=== PATIENT | male | born 1950 | race Hispanic/Latino ===

== ENCOUNTER 2017-08-21 04:18 | Inpatient (IN) | payer MEDICAID, MEDICARE ==
[2017-08-21 04:33] VITALS: BMI 25.1
[2017-08-21] MEDS ORDERED: Albuterol 0.083% Inhal Sol (2.5 mg/3 mL) UD INH STA (05:05)
--- NOTE | 2017-08-21 05:32 | C.PDOC ---
History Of Present Illness 67 year old male presents to the ED c/o productive cough with white phlegm, chest congestion, SOB, chills and itchy throat for the past 1 day. Patient reports had the flu shot this year. Patient denies fever, SOB, CP, recent travel , sick contacts. Time Seen by Provider: 08/21/17 04:48 Chief Complaint (Nursing): Cough, Cold, Congestion History Per: Patient History/Exam Limitations: no limitations Onset/Duration Of Symptoms: Days Current Symptoms Are (Timing): Still Present Location Of Pain: Throat Sick Contacts (Context): None Associated Symptoms: Chills, Cough, Sputum, Nasal Congestion. denies: Fever Ear Symptoms: Bilateral: None Recent travel outside of the [place]: No Additional History Per: Patient Past Medical History Reviewed: Historical Data, Nursing Documentation, Vital Signs Vital Signs: Last Vital Signs Temp 98.8 F 08/21/17 05:53 Pulse 101 H 08/21/17 05:53 Resp 20 08/21/17 05:53 BP 164/93 H 08/21/17 05:53 Pulse Ox 97 08/21/17 05:53 - Medical History PMH: No Chronic Diseases Surgical History: Appendectomy Family History: States: Unknown Family Hx - Social History Hx Alcohol Use: No (pt denies) Hx Substance Use: No (pt denies) - Immunization History Hx Tetanus Toxoid Vaccination: No Hx Influenza Vaccination: Yes Hx Pneumococcal Vaccination: No Review Of Systems Constitutional: Positive for: Chills. Negative for: Fever ENT: Positive for: Nose Congestion. Negative for: Nose Discharge, Throat Pain Cardiovascular: Negative for: Chest Pain Respiratory: Positive for: Cough, Sputum. Negative for: Shortness of Breath Gastrointestinal: Negative for: Nausea, Vomiting Skin: Negative for: Rash Neurological: Negative for: Headache, Dizziness Physical Exam - Physical Exam Appears: Non-toxic, No Acute Distress Skin: Normal Color, Warm, Dry Head: Atraumatic, Normacephalic Eye(s): bilateral: Normal Inspection Ear(s): Bilateral: Normal Nose: No Discharge Oral Mucosa: Moist Throat: Normal, No Erythema, No Exudate Neck: Normal ROM, Supple Chest: Symmetrical Cardiovascular: Rhythm Regular, No Murmur Respiratory: No Rales, Rhonchi (left lower base), No Wheezing Gastrointestinal/Abdominal: Soft, No Tenderness, No Guarding, No Rebound Extremity: Normal ROM, No Tenderness, No Swelling Neurological/Psych: Oriented x3, Normal Speech, Normal Motor, Normal Sensation Gait: Steady ED Course And Treatment O2 Sat by Pulse Oximetry: 93 Pulse Ox Interpretation: Abnormal (low) - Radiology CXR: Interpreted by Me, Viewed By Me (and dr noguera) CXR Interpretation: Yes: Mediastinum (wide), Other (uncoiled aorta) Progress Note: Plan: - Albuterol 2.5 mg INH. - Benadryl 25 mg PO. - Prednisone 40 mg PO. While in the ED patient was foudn to have elevated blood pressure. Patient with wide mediastinum, uncoiled aorta with cough and SOB. no infiltrate. Pt is pending CTA chest to r/o aortic aneurysm / PE. 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 - Scribe Statement The provider has reviewed the documentation as recorded by the Scribe William Muñoz All medical record entries made by the Scribe were at my direction and personally dictated by me. I have reviewed the chart and agree that the record accurately reflects my personal performance of the history, physical exam, medical decision making, and the department course for this patient. I have also personally directed, reviewed, and agree with the discharge instructions and disposition. Physician Patient Turnover Patient Signed Over To: Carina Rai Handoff Comments: Pending CTA chest and disposition
[2017-08-21] MEDS ORDERED: Albuterol 0.083% Inhal Sol (2.5 mg/3 mL) UD ONE (05:34)
[2017-08-21 07:38] LABS: BASO # 0.1 K/uL (0.0-0.2); BASO % 0.7 % (0.0-2.0); HEMOGLOBIN 15.8 g/dL (12.0-18.0); LYMPH # 0.6 K/uL (1.0-4.3); LYMPH % 4.4 % (20.0-40.0); MEAN CELL VOLUME 81.3 fL (80.0-94.0); MEAN CORPUSCULAR HEMOGLOBIN 27.5 pg (27.0-31.0); MEAN CORPUSCULAR HGB CONC 33.9 g/dL (33.0-37.0); MEAN PLATELET VOLUME 8.3 fL (7.2-11.7); MONO # 0.6 K/uL (0.0-0.8); MONO % 3.8 % (0.0-10.0); NEUT # 13.2 K/uL (1.8-7.0); NEUT % 91.1 % (50.0-75.0); NRBC % 0.1 % (0.0-2.0); PLATELET COUNT 313 K/uL (130-400); RBC 5.73 Mil/uL (4.40-5.90); WHITE BLOOD COUNT 14.4 K/uL (4.8-10.8)
[2017-08-21 07:53] LABS: ALB/GLOB RATIO 0.9 (1.0-2.1); ALBUMIN 4.2 g/dL (3.5-5.0); CALCIUM 8.9 mg/dl (8.6-10.4); GFR AFRICAN-AMERICAN > 60; GFR NON-AFRICAN AMERICAN > 60
[2017-08-21 07:54] LABS: ALT/SGPT 22 U/L (21-72); AST/SGOT 29 U/L (17-59); BLOOD UREA NITROGEN 14 mg/dL (9-20)
[2017-08-21 07:59] LABS: BANDS 7 % (0-2); LYMPHOCYTE 5 % (20-40); MONOCYTE 5 % (0-10); NEUTROPHIL 83 % (50-75); PLATELET ESTIMATE NORMAL (NORMAL); TOTAL CELLS COUNTED 100
[2017-08-21 08:00] LABS: ANISOCYTOSIS SLIGHT; OVALOCYTES SLIGHT
[2017-08-21 08:07] LABS: INR 1.1; PROTHROMBIN TIME 13.1 SECONDS (9.7-12.2)
--- NOTE | 2017-08-21 08:36 | RAD ---
HISTORY: cough, congestion COMPARISON: No prior. TECHNIQUE: Chest PA and lateral FINDINGS: LUNGS: No active pulmonary disease. PLEURA: No significant pleural effusion identified. No pneumothorax apparent. CARDIOVASCULAR: Normal. OSSEOUS STRUCTURES: No significant abnormalities. VISUALIZED UPPER ABDOMEN: Normal. OTHER FINDINGS: None. IMPRESSION: No active disease.
[2017-08-21] MEDS ORDERED: Iodixanol 320 MG/ML 100 ML BOTTLE IV ONE ×2 (08:39→09:13)
--- NOTE | 2017-08-21 10:16 | CT ---
PROCEDURE: CT Chest with contrast (Pulmonary Angiogram) HISTORY: SOB, cough, widened mediastinum COMPARISON: None available. TECHNIQUE: Axial computed tomography images were obtained of the chest in the pulmonary arterial phase of enhancement. Coronal and sagittal reformatted images were created and reviewed. Intravenous contrast dose: 100 mL Visipaque 320 Radiation dose: Total exam DLP = 556.46 mGy-cm. This CT exam was performed using one or more of the following dose reduction techniques: Automated exposure control, adjustment of the mA and/or kV according to patient size, and/or use of iterative reconstruction technique. FINDINGS: PULMONARY ARTERIES: Technically limited examination. Low-level confidence for subsegmental pulmonary artery evaluation. No large central pulmonary embolism involving the main, lobar or segmental pulmonary arteries. AORTA: No acute findings. No thoracic aortic aneurysm. LUNGS: Mild multifocal patchy opacity in the left upper lobe, possibly representing early pneumonia. No other abnormal opacity elsewhere. No pulmonary mass. PLEURAL SPACES: Unremarkable. No effusion or pneuomothorax. HEART: Unremarkable. No cardiomegaly. No significant pericardial effusion. LYMPH NODES: No lymphadenopathy. BONES, CHEST WALL: Unremarkable. No fracture or destructive lesion OTHER FINDINGS: Unremarkable. IMPRESSION: No evidence pulmonary embolism. Limited examination. Low level of confidence for subsegmental pulmonary arterial branch evaluation. Patchy opacities in left upper lobe which may represent early pneumonia. Follow-up advised.
[2017-08-21] MEDS ORDERED: cefTRIAXone IV 1 gm in Dextros 50 ML IV ONE (10:17)
[2017-08-21] MEDS ORDERED: Azithromycin 500mg/250ML NS 500 MG/250 ML BAG IV ONE (10:30)
[2017-08-21] MEDS ORDERED: cefTRIAXone IV 1 gm in Dextros 50 ML IVPB ONE (11:08)
[2017-08-21] MEDS ORDERED: Azithromycin 500mg/250ML NS 500 MG/250 ML BAG IVPB ONE (11:09)
[2017-08-21] MEDS ORDERED: Metoprolol 1 mg/ml Inj IVP STA (11:14)
[2017-08-21] MEDS: Saccharomyces Boulardi 250 mg Cap PO SCH ×2 (12:00→17:52)
[2017-08-21] MEDS ORDERED: Metoprolol 1 mg/ml Inj IVP ONE (12:14)
--- NOTE | 2017-08-21 13:30 | CP.PCM.HP ---
<Jl Collado - Last Filed: 08/21/17 13:52> History of Present Illness - History of Present Illness History of Present Illness: HPI: Patient is a 67M with no PMH who comes to the ED with a chief complaint of SOB and productive cough for 3 days. Nothing makes the cough, SOB better or worse. Describes the cough as productive of thick, yellow sputum. Denies any radiation. Cough and SOB has been constant since its onset. Patient denies any chest pain, fevers, but has been complaining of chills. Denies Nausea, vomiting , diarrhea, constipation. Denies any swelling of the lower extremities, orthopnea. Complaining of R. submandibular mass he has noticed to be growing in size. Denies any pain around the mass. Also complaining of nocturia causing him to get up many times during the night to urinate. PMH: None PSH: remote history of appy FH: Brother had KS in his 40s, father of melanoma, mother had a CVA at 76 and later of a colon mass. SH: lives at halfway, recently incarcerated for arson. Has already contacted senior administrative services officer Meds: none All: KNA Present on Admission - Present on Admission Any Indicators Present on Admission: No Review of Systems - Review of Systems Review of Systems: per HPI Past Patient History - Tetanus Immunizations Tetanus Immunization: Unknown - Past Social History Smoking Status: Unknown If Ever Smoked - INTEGUMENTARY Other/Comment: unkempt, dirty thick toenails, redness to right knee and multiple areas of abd - MUSCULOSKELETAL/RHEUMATOLOGICAL Hx Falls: No - PSYCHIATRIC Hx Substance Use: No (pt denies) - SURGICAL HISTORY Hx Appendectomy: Yes - ANESTHESIA Hx Anesthesia: No Meds Allergies/Adverse Reactions: Allergies Allergy/AdvReac Type Severity Reaction Status Date / Time No Known Allergies Allergy Verified 08/21/17 04:29 Physical Exam - Constitutional Appears: Non-toxic, No Acute Distress, Unkempt - Head Exam Head Exam: ATRAUMATIC, NORMAL INSPECTION, NORMOCEPHALIC - Eye Exam Eye Exam: EOMI, PERRL Pupil Exam: PERRL - ENT Exam ENT Exam: Mucous Membranes Moist - Neck Exam Neck exam: Positive for: Lymphadenopathy (R. Submandiublar mass, Nontender, mobile) - Respiratory Exam Additional comments: rales in bilateral lower lobes - Cardiovascular Exam Cardiovascular Exam: Tachycardia, REGULAR RHYTHM - GI/Abdominal Exam GI & Abdominal Exam: Normal Bowel Sounds, Soft. absent: Distended, Tenderness - Extremities Exam Extremities exam: Positive for: normal inspection. Negative for: joint swelling - Back Exam Back exam: NORMAL INSPECTION - Neurological Exam Neurological exam: Alert, Oriented x3 - Psychiatric Exam Psychiatric exam: Normal Affect, Normal Mood - Skin Skin Exam: Dry, Intact, Normal Color, Warm Results - Vital Signs Recent Vital Signs: Last Vital Signs Temp 98.8 F 08/21/17 05:53 Pulse 94 H 08/21/17 11:32 Resp 18 08/21/17 09:48 BP 166/114 H 08/21/17 13:09 Pulse Ox 97 08/21/17 09:48 - Labs Result Diagrams: 08/21/17 07:34 08/21/17 07:34 Labs: Laboratory Results - last 24 hr 08/21/17 08/21/17 08/21/17 07:34 07:34 07:34 WBC 14.4 H RBC 5.73 Hgb 15.8 Hct 46.5 MCV 81.3 MCH 27.5 MCHC 33.9 RDW 16.0 H Plt Count 313 MPV 8.3 Neut % (Auto) 91.1 H Lymph % (Auto) 4.4 L [place] % (Auto) 3.8 Eos % (Auto) 0.0 Baso % (Auto) 0.7 Neut # (Auto) 13.2 H Lymph # (Auto) 0.6 L [place] # (Auto) 0.6 Eos # (Auto) 0.0 Baso # (Auto) 0.1 Neutrophils % (Manual) 83 H Band Neutrophils % 7 H Lymphocytes % (Manual) 5 L Monocytes % (Manual) 5 Platelet Estimate Normal Anisocytosis (manual) Slight Ovalocytes Slight PT 13.1 H INR 1.1 APTT 30 D-Dimer, Quantitative Cancelled Sodium 143 Potassium 4.4 Chloride 104 Carbon Dioxide 25 Anion Gap 19 BUN 14 Creatinine 0.8 Est GFR ( Amer) > 60 Est GFR (Non-Af Amer) > 60 Random Glucose 153 H Calcium 8.9 Total Bilirubin 1.8 H AST 29 ALT 22 Alkaline Phosphatase 75 Total Protein 8.7 H Albumin 4.2 Globulin 4.5 H Albumin/Globulin Ratio 0.9 L Influenza Typ A,B (EIA) Grp A Beta Strep Ag 08/21/17 08/21/17 08/21/17 09:41 11:13 11:20 WBC RBC Hgb Hct MCV MCH MCHC RDW Plt Count MPV Neut % (Auto) Lymph % (Auto) [place] % (Auto) Eos % (Auto) Baso % (Auto) Neut # (Auto) Lymph # (Auto) [place] # (Auto) Eos # (Auto) Baso # (Auto) Neutrophils % (Manual) Band Neutrophils % Lymphocytes % (Manual) Monocytes % (Manual) Platelet Estimate Anisocytosis (manual) Ovalocytes PT INR APTT D-Dimer, Quantitative 449 H Sodium Potassium Chloride Carbon Dioxide Anion Gap BUN Creatinine Est GFR ( Amer) Est GFR (Non-Af Amer) Random Glucose Calcium Total Bilirubin AST ALT Alkaline Phosphatase Total Protein Albumin Globulin Albumin/Globulin Ratio Influenza Typ A,B (EIA) Negative for flu a/b Grp A Beta Strep Ag Negative Assessment & Plan (1) Left upper lobe pneumonia Assessment and Plan: CT chest: patchy opacity of JP, may represent early PNA CXR: No active disease Flu negative F/U strep, mycoplasma, legionella F/U blood culture Rocephin 1g IV QD Zithromax 500mg IV QD Status: Acute Priority: High (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 Priority: High (3) Incomplete RBBB Assessment and Plan: Cardio (Dungo) - F/U reccs echo - F/U tele Status: Chronic Priority: High (4) Prophylactic measure Status: Chronic Priority: Low <Bnuny Odonnell - Last Filed: 08/21/17 18:40> Results - Vital Signs Recent Vital Signs: Last Vital Signs Temp 97.5 F L 08/21/17 16:27 Pulse 77 08/21/17 18:00 Resp 20 08/21/17 18:00 BP 113/85 08/21/17 16:27 Pulse Ox 97 08/21/17 16:27 - Labs Result Diagrams: 08/21/17 07:34 08/21/17 07:34 Labs: Laboratory Results - last 24 hr 08/21/17 08/21/17 08/21/17 07:34 07:34 07:34 WBC 14.4 H RBC 5.73 Hgb 15.8 Hct 46.5 MCV 81.3 MCH 27.5 MCHC 33.9 RDW 16.0 H Plt Count 313 MPV 8.3 Neut % (Auto) 91.1 H Lymph % (Auto) 4.4 L [place] % (Auto) 3.8 Eos % (Auto) 0.0 Baso % (Auto) 0.7 Neut # (Auto) 13.2 H Lymph # (Auto) 0.6 L [place] # (Auto) 0.6 Eos # (Auto) 0.0 Baso # (Auto) 0.1 Neutrophils % (Manual) 83 H Band Neutrophils % 7 H Lymphocytes % (Manual) 5 L Monocytes % (Manual) 5 Platelet Estimate Normal Anisocytosis (manual) Slight Ovalocytes Slight PT 13.1 H INR 1.1 APTT 30 D-Dimer, Quantitative Cancelled Sodium 143 Potassium 4.4 Chloride 104 Carbon Dioxide 25 Anion Gap 19 BUN 14 Creatinine 0.8 Est GFR ( Amer) > 60 Est GFR (Non-Af Amer) > 60 Random Glucose 153 H Calcium 8.9 Total Bilirubin 1.8 H AST 29 ALT 22 Alkaline Phosphatase 75 Total Protein 8.7 H Albumin 4.2 Globulin 4.5 H Albumin/Globulin Ratio 0.9 L Influenza Typ A,B (EIA) Ur L.pneumophila Ag Grp A Beta Strep Ag 08/21/17 08/21/17 08/21/17 09:41 11:13 11:20 WBC RBC Hgb Hct MCV MCH MCHC RDW Plt Count MPV Neut % (Auto) Lymph % (Auto) [place] % (Auto) Eos % (Auto) Baso % (Auto) Neut # (Auto) Lymph # (Auto) [place] # (Auto) Eos # (Auto) Baso # (Auto) Neutrophils % (Manual) Band Neutrophils % Lymphocytes % (Manual) Monocytes % (Manual) Platelet Estimate Anisocytosis (manual) Ovalocytes PT INR APTT D-Dimer, Quantitative 449 H Sodium Potassium Chloride Carbon Dioxide Anion Gap BUN Creatinine Est GFR ( Amer) Est GFR (Non-Af Amer) Random Glucose Calcium Total Bilirubin AST ALT Alkaline Phosphatase Total Protein Albumin Globulin Albumin/Globulin Ratio Influenza Typ A,B (EIA) Negative for flu a/b Ur L.pneumophila Ag Grp A Beta Strep Ag Negative 08/21/17 Unknown WBC RBC Hgb Hct MCV MCH MCHC RDW Plt Count MPV Neut % (Auto) Lymph % (Auto) [place] % (Auto) Eos % (Auto) Baso % (Auto) Neut # (Auto) Lymph # (Auto) [place] # (Auto) Eos # (Auto) Baso # (Auto) Neutrophils % (Manual) Band Neutrophils % Lymphocytes % (Manual) Monocytes % (Manual) Platelet Estimate Anisocytosis (manual) Ovalocytes PT INR APTT D-Dimer, Quantitative Sodium Potassium Chloride Carbon Dioxide Anion Gap BUN Creatinine Est GFR ( Amer) Est GFR (Non-Af Amer) Random Glucose Calcium Total Bilirubin AST ALT Alkaline Phosphatase Total Protein Albumin Globulin Albumin/Globulin Ratio Influenza Typ A,B (EIA) Ur L.pneumophila Ag Negative Grp A Beta Strep Ag Attending/Attestation - Attestation I have personally seen and examined this patient.: Yes I have fully participated in the care of the patient.: Yes I have reviewed all pertinent clinical information: Yes Notes (Text): 08/21/17 18:39 Patient was seen and examined in the Emergency Room shortly after resident. History, Exam, assessment and plan were gone over with the resident. We will get the CT Soft Tissue Neck with and without contrast 08/22/17 as it could not be done today secondary to contrast being given for the CT Chest PE protocol. Bunny Odonnell D.O.
[2017-08-22] MEDS ORDERED: guaiFENesin 200 mg/10 ml Syrup UD PO ONE (02:50)
[2017-08-22] MEDS: Azithromycin 500 MG in Sodium Chloride 0.9% 250 ML IVPB SCH (06:00)
[2017-08-22 08:02] LABS: BASO % 0.3 % (0.0-2.0); EOS # 0.1 K/uL (0.0-0.7); EOS % 1.4 % (0.0-4.0); HEMOGLOBIN 14.2 g/dL (12.0-18.0); MEAN CELL VOLUME 81.7 fL (80.0-94.0); MEAN CORPUSCULAR HGB CONC 33.1 g/dL (33.0-37.0); MEAN PLATELET VOLUME 8.4 fL (7.2-11.7); MONO # 0.9 K/uL (0.0-0.8); NEUT # 8.1 K/uL (1.8-7.0); NEUT % 79.3 % (50.0-75.0); RBC 5.25 Mil/uL (4.40-5.90); RED CELL DISTRIBUTION WIDTH 16.1 % (11.5-14.5); WHITE BLOOD COUNT 10.2 K/uL (4.8-10.8)
[2017-08-22 08:47] LABS: BLOOD UREA NITROGEN 19 mg/dL (9-20); CALCIUM 8.3 mg/dl (8.6-10.4); GFR AFRICAN-AMERICAN > 60; GFR NON-AFRICAN AMERICAN > 60
[2017-08-22] MEDS: Saccharomyces Boulardi 250 mg Cap PO SCH ×2 (09:45→17:21)
[2017-08-22] MEDS: guaiFENesin 600 mg ER Tab PO PRN (09:46)
[2017-08-22] MEDS ORDERED: Iodixanol 320 MG/ML 100 ML BOTTLE IV ONE ×2 (10:50→16:21)
--- NOTE | 2017-08-22 12:25 | CARD ---
APPROVED REPORT EKG Measurement Heart [id number] <Conclusion> Normal sinus rhythm Possible Left atrial enlargement Left axis deviation Incomplete right bundle branch block Inferior infarct, age undetermined Abnormal ECG
--- NOTE | 2017-08-22 13:33 | CARD ---
APPROVED REPORT EXAM: Two-dimensional and M-mode echocardiogram with Doppler and color Doppler. Other Information Quality : GoodRhythm : INDICATION Abnormal EKG/Arrhythmia Dyspnea RISK FACTORS Hypertension 2D DIMENSIONS IVSd1.1 (0.7-1.1cm)LVDd4.9 (3.9-5.9cm) PWd1.3 (0.7-1.1cm)LVDs2.7 (2.5-4.0cm) FS (%) 45.5 %LVEF (%)76.7 (>50%) M-Mode DIMENSIONS Left Atrium (MM)3.71 (2.5-4.0cm)Aortic Root3.98 (2.2-3.7cm) Aortic Cusp Exc.2.15 (1.5-2.0cm) Mitral Valve MV E Wvxxthmm14.8cm/sMV A Crcdsoyz61.0cm/sE/A ratio0.9 TDI E/Lateral E'0.0E/Medial E'0.0 Tricuspid Valve TR Peak Omcgsftx712es/sTR Peak Gr.36mmHg LEFT VENTRICLE The left ventricle is normal size. There is normal left ventricular wall thickness. The left ventricular function is normal. The left ventricular ejection fraction is within the normal range. No regional wall motion abnormalities noted. The left ventricular diastolic function is normal. No left ventricle thrombus noted on this study. There is no ventricular septal defect visualized. There is no left ventricular aneurysm. There is no mass noted in the left ventricle. RIGHT VENTRICLE The right ventricle is normal size. There is normal right ventricular wall thickness. The right ventricular systolic function is normal. ATRIA The left atrium size is normal. The right atrium size is normal. The interatrial septum is intact with no evidence for an atrial septal defect. AORTIC VALVE The aortic valve is normal in structure and function. No aortic regurgitation is present. There is no aortic valvular stenosis. There is no aortic valvular vegetation. MITRAL VALVE The mitral valve is normal in structure and function. There is no evidence of mitral valve prolapse. There is no mitral valve stenosis. There is no mitral valve regurgitation noted. TRICUSPID VALVE The tricuspid valve is normal in structure and function. There is mild tricuspid regurgitation. Right ventricular systolic pressure is estimated at 30-40 mmHg. There is no tricuspid valve prolapse or vegetation. There is no tricuspid valve stenosis. PULMONIC VALVE The pulmonary valve is normal in structure and function. There is no pulmonic valvular regurgitation. There is no pulmonic valvular stenosis. GREAT VESSELS The aortic root is normal in size. The ascending aorta is normal in size. The pulmonary artery is normal. The IVC is normal in size and collapses >50% with inspiration. PERICARDIAL EFFUSION The pericardium appears normal. There is no pleural effusion. <Conclusion> The left ventricular function is normal. The left ventricular ejection fraction is within the normal range. No regional wall motion abnormalities noted. There is mild tricuspid regurgitation. Right ventricular systolic pressure is estimated at 30-40 mmHg.
--- NOTE | 2017-08-22 15:43 | CP.PCM.PN ---
Subjective - Date & Time of Evaluation Date of Evaluation: 08/22/17 Time of Evaluation: 15:41 - Subjective Subjective: Patient seen and examined at bedside. No cough, No SOB tolerating diet no fever or chills no nausea or vomiting. No other complaints at this time Objective - Vital Signs/Intake and Output Vital Signs (last 24 hours): Temp Pulse Resp BP Pulse Ox 98.0 F 77 20 153/95 H 97 08/22/17 07:00 08/22/17 15:26 08/22/17 07:00 08/22/17 07:00 08/22/17 07:00 - Medications Medications: Current Medications Acetaminophen (Tylenol 325mg Tab) 650 mg PO Q8H PRN PRN Reason: Fever >100.4 F Last Admin: 08/22/17 09:45 Dose: 650 mg Guaifenesin (Mucinex La) 600 mg PO Q12H PRN PRN Reason: Cough and congestion Last Admin: 08/22/17 09:46 Dose: 600 mg Heparin Sodium (Porcine) (Heparin) 5,000 units SC Q12 [facility] Last Admin: 08/22/17 15:13 Dose: Not Given Azithromycin 500 mg/ Sodium (Chloride) 250 mls @ 250 mls/hr IVPB Q24H ZAKIA PRN Reason: Protocol Last Admin: 08/22/17 06:00 Dose: 250 mls/hr Ceftriaxone Sodium 1 gm/ (Sodium Chloride) 100 mls @ 100 mls/hr IVPB DAILY ZAKIA PRN Reason: Protocol Last Admin: 08/22/17 09:47 Dose: 100 mls/hr Lisinopril (Zestril) 20 mg PO DAILY [facility] Last Admin: 08/22/17 09:49 Dose: 20 mg Saccharomyces Boulardii (Florastor) 250 mg PO BID [facility] Last Admin: 08/22/17 09:45 Dose: 250 mg - Labs Labs: 08/22/17 07:53 08/22/17 07:53 PT 13.1 SECONDS (9.7-12.2) H 08/21/17 07:34 INR 1.1 08/21/17 07:34 APTT 30 SECONDS (21-34) 08/21/17 07:34 - Additional Findings Additional findings: - Constitutional Appears: Non-toxic, No Acute Distress, Unkempt - Head Exam Head Exam: ATRAUMATIC, NORMAL INSPECTION, NORMOCEPHALIC - Eye Exam Eye Exam: EOMI, PERRL Pupil Exam: PERRL - ENT Exam ENT Exam: Mucous Membranes Moist - Neck Exam Neck exam: Positive for: Lymphadenopathy (R. Submandiublar mass, Nontender, mobile) - Respiratory Exam Additional comments: rales in bilateral lower lobes - Cardiovascular Exam Cardiovascular Exam: Tachycardia, REGULAR RHYTHM - GI/Abdominal Exam GI & Abdominal Exam: Normal Bowel Sounds, Soft. absent: Distended, Tenderness - Extremities Exam Extremities exam: Positive for: normal inspection. Negative for: joint swelling - Back Exam Back exam: NORMAL INSPECTION - Neurological Exam Neurological exam: Alert, Oriented x3 - Psychiatric Exam Psychiatric exam: Normal Affect, Normal Mood - Skin Skin Exam: Dry, Intact, Normal Color, Warm Assessment and Plan (1) Left upper lobe pneumonia Assessment & Plan: CT chest: patchy opacity of JP, may represent early PNA CURB-65 score is 2. 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
--- NOTE | 2017-08-22 16:08 | CP.PCM.CON ---
History of Present Illness - History of Present Illness History of Present Illness: CC sob on exertion cough productive of yellow sputum HPI HPI: Patient is a 67M with no PMH who comes to the ED with a chief complaint of SOB and productive cough for 3 days. Nothing makes the cough, SOB better or worse. Describes the cough as productive of thick, yellow sputum. Denies any radiation. Cough and SOB has been constant since its onset. Patient denies any chest pain, fevers, but has been complaining of chills. Denies Nausea , vomiting, diarrhea, constipation. Denies any swelling of the lower extremities , orthopnea. Complaining of R. submandibular mass he has noticed to be growing in size. Denies any pain around the mass. Also complaining of nocturia causing him to get up many times during the night to urinate. Patient endorses on and off sob on exertion associated with easy fatigability and leg edema for the past 6 weeks. ECHO - nL LV systolic dysfunction +diastolic dysfunction (E/A 0.9); don't agree with official reading +mild to moderate pulmonary HTN w/ RVSP= 46mmHg = (Tricuspid valve peak gradient = 36mmHg + 10) EKG sinus rhythm w/ LAHB and IRBBB CT angio(PE protocol) - normal Review of Systems - Constitutional Constitutional: Chills - Cardiovascular Cardiovascular: Dyspnea on Exertion, Leg Edema. absent: Chest Pain - Respiratory Respiratory: Dyspnea on Exertion, Excessive Mucous Production, Pain with Coughing Past Patient History - Tetanus Immunizations Tetanus Immunization: Unknown - Past Medical History & Family History Past Medical History?: Yes - Past Social History Smoking Status: Never Smoked - INTEGUMENTARY Other/Comment: unkempt, dirty thick toenails, redness to right knee and multiple areas of abd - MUSCULOSKELETAL/RHEUMATOLOGICAL Hx Falls: No - PSYCHIATRIC Hx Substance Use: No - SURGICAL HISTORY Hx Surgeries: Yes Hx Appendectomy: Yes - ANESTHESIA Hx Anesthesia: Yes Hx Anesthesia Reactions: No Hx Malignant Hyperthermia: No Has any member of the family had a problem w/ anesthesia?: No Meds Allergies/Adverse Reactions: Allergies Allergy/AdvReac Type Severity Reaction Status Date / Time No Known Allergies Allergy Verified 08/21/17 04:29 - Medications Medications: Current Medications Acetaminophen (Tylenol 325mg Tab) 650 mg PO Q8H PRN PRN Reason: Fever >100.4 F Last Admin: 08/22/17 09:45 Dose: 650 mg Guaifenesin (Mucinex La) 600 mg PO Q12H PRN PRN Reason: Cough and congestion Last Admin: 08/22/17 09:46 Dose: 600 mg Heparin Sodium (Porcine) (Heparin) 5,000 units SC Q12 [facility] Last Admin: 08/22/17 15:13 Dose: Not Given Azithromycin 500 mg/ Sodium (Chloride) 250 mls @ 250 mls/hr IVPB Q24H ZAKIA PRN Reason: Protocol Last Admin: 08/22/17 06:00 Dose: 250 mls/hr Ceftriaxone Sodium 1 gm/ (Sodium Chloride) 100 mls @ 100 mls/hr IVPB DAILY [facility] PRN Reason: Protocol Last Admin: 08/22/17 09:47 Dose: 100 mls/hr Lisinopril (Zestril) 20 mg PO DAILY [facility] Last Admin: 08/22/17 09:49 Dose: 20 mg Saccharomyces Boulardii (Florastor) 250 mg PO BID [facility] Last Admin: 08/22/17 09:45 Dose: 250 mg Physical Exam - Constitutional Appears: Chronically Ill - Head Exam Head Exam: NORMAL INSPECTION - Eye Exam Eye Exam: absent: Scleral icterus - ENT Exam ENT Exam: Mucous Membranes Moist - Neck Exam Neck exam: Positive for: Full Rom. Negative for: Lymphadenopathy - Respiratory Exam Respiratory Exam: Decreased Breath Sounds - Cardiovascular Exam Cardiovascular Exam: REGULAR RHYTHM - GI/Abdominal Exam GI & Abdominal Exam: Soft. absent: Tenderness - Extremities Exam Extremities exam: Positive for: pedal edema - Neurological Exam Neurological exam: Alert, Oriented x3 Results - Vital Signs Recent Vital Signs: Last Vital Signs Temp 97.4 F L 08/22/17 15:00 Pulse 77 08/22/17 15:26 Resp 18 08/22/17 15:00 BP 158/93 H 08/22/17 15:00 Pulse Ox 96 08/22/17 15:00 - Labs Result Diagrams: 08/22/17 07:53 08/22/17 07:53 Labs: Laboratory Results - last 24 hr 08/21/17 08/22/17 08/22/17 Unknown 07:53 07:53 WBC 10.2 RBC 5.25 Hgb 14.2 Hct 42.8 MCV 81.7 MCH 27.0 MCHC 33.1 RDW 16.1 H Plt Count 275 MPV 8.4 Neut % (Auto) 79.3 H Lymph % (Auto) 10.0 L [place] % (Auto) 9.0 Eos % (Auto) 1.4 Baso % (Auto) 0.3 Neut # (Auto) 8.1 H Lymph # (Auto) 1.0 [place] # (Auto) 0.9 H Eos # (Auto) 0.1 Baso # (Auto) 0.0 Sodium 143 Potassium 3.8 Chloride 106 Carbon Dioxide 25 Anion Gap 16 BUN 19 Creatinine 0.9 Est GFR ( Amer) > 60 Est GFR (Non-Af Amer) > 60 Random Glucose 100 Calcium 8.3 L Phosphorus 3.5 Magnesium 2.1 Ur L.pneumophila Ag Negative Assessment & Plan - Assessment and Plan (Free Text) Assessment: Acute bronchitis r/o Pneumonia CHF 2ndary to diastolic dysfunction HTN Pulmonary HTN Sinus tach on admission most likely metabolic in nature Plan: Cont abtx ECHO - done Lexiscan stress test when more stable pulmonary santo. Patient's sinus tach converted to sinus rhythm after Abtx was instituted
--- NOTE | 2017-08-22 17:51 | CT ---
PROCEDURE: CT NECK WITH CONTRAST HISTORY: R. Submandibular mass COMPARISON: None TECHNIQUE: CT of the neck with intravenous contrast. Coronal and sagittal reformats generated. Intravenous contrast dose: 100 mL Visipaque 320 Radiation dose: DLP 566.84 mGy-cm This CT exam was performed using one or more of the following dose reduction techniques: Automated exposure control, adjustment of the mA and/or kV according to patient size, and/or use of iterative reconstruction technique. FINDINGS: NASOPHARYNX: Unremarkable. SUPRAHYOID NECK: Unremarkable oropharynx, oral cavity, parapharyngeal space and retropharyngeal space. INFRAHYOID NECK: Unremarkable larynx, hypopharynx, and supraglottic space. Vocal cords intact. MASS: None. GLANDS: There is 17.5 x 10.4 millimeter calculus at the right submandibular salivary gland. Both salivary glands demonstrate heterogeneous enhancement surrounding with mild stranding. Findings may represent submandibular sialadenitis. Parotid glands unremarkable. Normal size thyroid gland, without nodule. LYMPH NODES: Slightly prominent mid and upper neck lymph nodes without evidence of significant lymphadenopathy. CERVICAL SPINE: Degenerative changes noted at the mid and lower cervical spine VASCULAR STRUCTURES: Unremarkable. OTHER FINDINGS: Almost complete opacification of the sphenoid maxillary and ethmoid sinuses consistent with pansinusitis. IMPRESSION: 17.5 x 10.4 millimeter stone noted at the right submandibular gland which appears smaller than the left. Heterogeneous enhancement of the submandibular salivary gland with mild adjacent stranding suspicious forsialadenitis. Findings suggestive of pansinusitis.
[2017-08-23 00:44] VITALS: O2SAT 95
[2017-08-23] MEDS: Azithromycin 500 MG in Sodium Chloride 0.9% 250 ML IVPB SCH (06:00)
[2017-08-23] MEDS: Saccharomyces Boulardi 250 mg Cap PO SCH (09:53)
[2017-08-23] MEDS: guaiFENesin 600 mg ER Tab PO PRN (09:58)
--- NOTE | 2017-08-23 10:32 | CP.PCM.DIS ---
<Jl Collado - Last Filed: 08/23/17 11:57> Provider - Provider Date of Admission: 08/21/17 11:14 Attending physician: Bunny Odonnell MD Primary care physician: Clinic Consults: none Time Spent in preparation of Discharge (in minutes): 45 Diagnosis - Discharge Diagnosis (1) Left upper lobe pneumonia Status: Acute Priority: High (2) Incomplete RBBB Status: Chronic Priority: High (3) Sialadenitis Status: Acute Hospital Course - Lab Results Lab Results: Micro Results 08/21/17 11:00 Blood Blood Culture - Preliminary NO GROWTH AFTER 24 HOURS 08/21/17 10:30 Blood Blood Culture - Preliminary NO GROWTH AFTER 24 HOURS 08/21/17 11:13 Throat Group A Strep Throat Culture - Final NO BETA STREP GROUP A ISOLATED. Most Recent Lab Values WBC 10.2 K/uL (4.8-10.8) 08/22/17 07:53 RBC 5.25 Mil/uL (4.40-5.90) 08/22/17 07:53 Hgb 14.2 g/dL (12.0-18.0) 08/22/17 07:53 Hct 42.8 % (35.0-51.0) 08/22/17 07:53 MCV 81.7 fL (80.0-94.0) 08/22/17 07:53 MCH 27.0 pg (27.0-31.0) 08/22/17 07:53 MCHC 33.1 g/dL (33.0-37.0) 08/22/17 07:53 RDW 16.1 % (11.5-14.5) H 08/22/17 07:53 Plt Count 275 K/uL (130-400) 08/22/17 07:53 MPV 8.4 fL (7.2-11.7) 08/22/17 07:53 Neut % (Auto) 79.3 % (50.0-75.0) H 08/22/17 07:53 Lymph % (Auto) 10.0 % (20.0-40.0) L 08/22/17 07:53 [place] % (Auto) 9.0 % (0.0-10.0) 08/22/17 07:53 Eos % (Auto) 1.4 % (0.0-4.0) 08/22/17 07:53 Baso % (Auto) 0.3 % (0.0-2.0) 08/22/17 07:53 Neut # (Auto) 8.1 K/uL (1.8-7.0) H 08/22/17 07:53 Lymph # (Auto) 1.0 K/uL (1.0-4.3) 08/22/17 07:53 [place] # (Auto) 0.9 K/uL (0.0-0.8) H 08/22/17 07:53 Eos # (Auto) 0.1 K/uL (0.0-0.7) 08/22/17 07:53 Baso # (Auto) 0.0 K/uL (0.0-0.2) 08/22/17 07:53 Neutrophils % (Manual) 83 % (50-75) H 08/21/17 07:34 Band Neutrophils % 7 % (0-2) H 08/21/17 07:34 Lymphocytes % (Manual) 5 % (20-40) L 08/21/17 07:34 Monocytes % (Manual) 5 % (0-10) 08/21/17 07:34 Platelet Estimate Normal (NORMAL) 08/21/17 07:34 Anisocytosis (manual) Slight 08/21/17 07:34 Ovalocytes Slight 08/21/17 07:34 PT 13.1 SECONDS (9.7-12.2) H 08/21/17 07:34 INR 1.1 08/21/17 07:34 APTT 30 SECONDS (21-34) 08/21/17 07:34 D-Dimer, Quantitative 449 ng/mlDDU (0-243) H 08/21/17 09:41 Sodium 143 mmol/L (132-148) 08/22/17 07:53 Potassium 3.8 mmol/L (3.6-5.2) 08/22/17 07:53 Chloride 106 mmol/L (98-107) 08/22/17 07:53 Carbon Dioxide 25 mmol/L (22-30) 08/22/17 07:53 Anion Gap 16 (10-20) 08/22/17 07:53 BUN 19 mg/dL (9-20) 08/22/17 07:53 Creatinine 0.9 mg/dL (0.8-1.5) 08/22/17 07:53 Est GFR ( Amer) > 60 08/22/17 07:53 Est GFR (Non-Af Amer) > 60 08/22/17 07:53 Random Glucose 100 mg/dL (75-110) 08/22/17 07:53 Calcium 8.3 mg/dl (8.6-10.4) L 08/22/17 07:53 Phosphorus 3.5 mg/dL (2.5-4.5) 08/22/17 07:53 Magnesium 2.1 mg/dL (1.6-2.3) 08/22/17 07:53 Total Bilirubin 1.8 mg/dL (0.2-1.3) H 08/21/17 07:34 AST 29 U/L (17-59) 08/21/17 07:34 ALT 22 U/L (21-72) 08/21/17 07:34 Alkaline Phosphatase 75 U/L (38-126) 08/21/17 07:34 NT-Pro-B Natriuret Pep 141 pg/mL (0-900) 08/22/17 19:19 Total Protein 8.7 g/dL (6.3-8.3) H 08/21/17 07:34 Albumin 4.2 g/dL (3.5-5.0) 08/21/17 07:34 Globulin 4.5 gm/dL (2.2-3.9) H 08/21/17 07:34 Albumin/Globulin Ratio 0.9 (1.0-2.1) L 08/21/17 07:34 Influenza Typ A,B (EIA) Negative for flu a/b (NEGATIVE) 08/21/17 11:20 Ur L.pneumophila Ag Negative (NEGATIVE) 08/21/17 Unknown Grp A Beta Strep Ag Negative (NEGATIVE) 08/21/17 11:13 - Hospital Course Hospital Course: Patient is a 67M with no PMH who comes to the ED with a chief complaint of SOB and productive cough for 3 days. Nothing makes the cough, SOB better or worse. Describes the cough as productive of thick, yellow sputum. Denies any radiation. Cough and SOB has been constant since its onset. Patient denies any chest pain, fevers, but has been complaining of chills. Denies Nausea, vomiting , diarrhea, constipation. Denies any swelling of the lower extremities, orthopnea. Complaining of R. submandibular mass he has noticed to be growing in size. Denies any pain around the mass. Also complaining of nocturia causing him to get up many times during the night to urinate. Hospital Course: Patient had Chest CT that should what might be an early pneumonia. He was started on azithromycin and rocephin. He was found to have submandibular gland mass that was evaluated by CT. It showed 17.5x10.4 mm stone in the R. submandibular gland as well as christiansen sinusitis. Patients CURB65 score is 2 not requiring inpatient admission. Patiannamariejnt can be discharge on augmentin one tablet po bid for 14 days to be taken at breakfast and dinner. This will cover pneumonia, sinusitis and sialidinitis. Patient should also take florester for a total of 44 days 2 hours before dinner and breakfast. He should follow up in the clinic in 7-10 days. Discharge Exam - Head Exam Head Exam: ATRAUMATIC, NORMAL INSPECTION, NORMOCEPHALIC - Eye Exam Eye Exam: EOMI Pupil Exam: NORMAL ACCOMODATION - Respiratory Exam Respiratory Exam: Clear to PA & Lateral, UNREMARKABLE - Cardiovascular Exam Cardiovascular Exam: REGULAR RHYTHM - GI/Abdominal Exam GI & Abdominal Exam: Normal Bowel Sounds, Soft. absent: Distended, Tenderness - Neurological Exam Neurological exam: Alert, Oriented x3 - Psychiatric Exam Psychiatric exam: Normal Affect, Normal Mood - Skin Skin Exam: Dry, Intact, Normal Color Discharge Plan - Discharge Medications Prescriptions: Amoxicillin/Clavulanate [Augmentin 875 MG-125 MG] 1 tab PO BID 14 Days tab Saccharomyces Boulardi [Florastor] 250 mg PO BID 44 Days cap - Follow Up Plan Condition: GOOD Disposition: HOME/ ROUTINE Instructions: Saccharomyces boulardii, Pneumonia, Adult (DC), Shortness of Breath (Dyspnea) (DC), Cough, Adult (DC), Amoxicillin and Clavulanate Additional Instructions: 1. Please follow up in the clinic here at [facility]. Please call to make an appointment. I have attached the information to the clinic. If you are unable to make an appointment please feel free to walk in. 2. Please take Augmentin one tablet with breakfast and dinner for 14 days 3. Please take Floraster 2 hours after breakfast and before dinner for 44 days. 4. Please massage submandibular gland as directed. Please see attached directions. Referrals: at [facility] [Outside] <Bunny Odonnell - Last Filed: 08/23/17 20:54> Provider - Provider Date of Admission: 08/21/17 11:14 Attending physician: Bunny Odonnell MD Time Spent in preparation of Discharge (in minutes): 40 Hospital Course - Lab Results Lab Results: Micro Results 08/21/17 11:00 Blood Blood Culture - Preliminary NO GROWTH AFTER 48 HOURS 08/21/17 10:30 Blood Blood Culture - Preliminary NO GROWTH AFTER 48 HOURS 08/21/17 11:13 Throat Group A Strep Throat Culture - Final NO BETA STREP GROUP A ISOLATED. Most Recent Lab Values WBC 10.2 K/uL (4.8-10.8) 08/22/17 07:53 RBC 5.25 Mil/uL (4.40-5.90) 08/22/17 07:53 Hgb 14.2 g/dL (12.0-18.0) 08/22/17 07:53 Hct 42.8 % (35.0-51.0) 08/22/17 07:53 MCV 81.7 fL (80.0-94.0) 08/22/17 07:53 MCH 27.0 pg (27.0-31.0) 08/22/17 07:53 MCHC 33.1 g/dL (33.0-37.0) 08/22/17 07:53 RDW 16.1 % (11.5-14.5) H 08/22/17 07:53 Plt Count 275 K/uL (130-400) 08/22/17 07:53 MPV 8.4 fL (7.2-11.7) 08/22/17 07:53 Neut % (Auto) 79.3 % (50.0-75.0) H 08/22/17 07:53 Lymph % (Auto) 10.0 % (20.0-40.0) L 08/22/17 07:53 [place] % (Auto) 9.0 % (0.0-10.0) 08/22/17 07:53 Eos % (Auto) 1.4 % (0.0-4.0) 08/22/17 07:53 Baso % (Auto) 0.3 % (0.0-2.0) 08/22/17 07:53 Neut # (Auto) 8.1 K/uL (1.8-7.0) H 08/22/17 07:53 Lymph # (Auto) 1.0 K/uL (1.0-4.3) 08/22/17 07:53 [place] # (Auto) 0.9 K/uL (0.0-0.8) H 08/22/17 07:53 Eos # (Auto) 0.1 K/uL (0.0-0.7) 08/22/17 07:53 Baso # (Auto) 0.0 K/uL (0.0-0.2) 08/22/17 07:53 Neutrophils % (Manual) 83 % (50-75) H 08/21/17 07:34 Band Neutrophils % 7 % (0-2) H 08/21/17 07:34 Lymphocytes % (Manual) 5 % (20-40) L 08/21/17 07:34 Monocytes % (Manual) 5 % (0-10) 08/21/17 07:34 Platelet Estimate Normal (NORMAL) 08/21/17 07:34 Anisocytosis (manual) Slight 08/21/17 07:34 Ovalocytes Slight 08/21/17 07:34 PT 13.1 SECONDS (9.7-12.2) H 08/21/17 07:34 INR 1.1 08/21/17 07:34 APTT 30 SECONDS (21-34) 08/21/17 07:34 D-Dimer, Quantitative 449 ng/mlDDU (0-243) H 08/21/17 09:41 Sodium 143 mmol/L (132-148) 08/22/17 07:53 Potassium 3.8 mmol/L (3.6-5.2) 08/22/17 07:53 Chloride 106 mmol/L (98-107) 08/22/17 07:53 Carbon Dioxide 25 mmol/L (22-30) 08/22/17 07:53 Anion Gap 16 (10-20) 08/22/17 07:53 BUN 19 mg/dL (9-20) 08/22/17 07:53 Creatinine 0.9 mg/dL (0.8-1.5) 08/22/17 07:53 Est GFR ( Amer) > 60 08/22/17 07:53 Est GFR (Non-Af Amer) > 60 08/22/17 07:53 Random Glucose 100 mg/dL (75-110) 08/22/17 07:53 Calcium 8.3 mg/dl (8.6-10.4) L 08/22/17 07:53 Phosphorus 3.5 mg/dL (2.5-4.5) 08/22/17 07:53 Magnesium 2.1 mg/dL (1.6-2.3) 08/22/17 07:53 Total Bilirubin 1.8 mg/dL (0.2-1.3) H 08/21/17 07:34 AST 29 U/L (17-59) 08/21/17 07:34 ALT 22 U/L (21-72) 08/21/17 07:34 Alkaline Phosphatase 75 U/L (38-126) 08/21/17 07:34 NT-Pro-B Natriuret Pep 141 pg/mL (0-900) 08/22/17 19:19 Total Protein 8.7 g/dL (6.3-8.3) H 08/21/17 07:34 Albumin 4.2 g/dL (3.5-5.0) 08/21/17 07:34 Globulin 4.5 gm/dL (2.2-3.9) H 08/21/17 07:34 Albumin/Globulin Ratio 0.9 (1.0-2.1) L 08/21/17 07:34 Influenza Typ A,B (EIA) Negative for flu a/b (NEGATIVE) 08/21/17 11:20 Ur L.pneumophila Ag Negative (NEGATIVE) 08/21/17 Unknown Mycoplasma pneumon IgG 2.54 (<=0.90) H 08/21/17 13:08 Mycoplasma pneumon IgM 27 U/mL (<770) 08/21/17 13:08 Grp A Beta Strep Ag Negative (NEGATIVE) 08/21/17 11:13 Attending/Attestation - Attestation I have personally seen and examined this patient.: Yes I have fully participated in the care of the patient.: Yes I have reviewed all pertinent clinical information, including history, physical exam and plan: Yes Notes (Text): 08/23/17 20:53 Patient was seen and examined shortly after Resident Dr. Tali Gil. Exam, assessment and plan, and discharge instructions were gone over with the resident. Demonstrated to patient on proper massage of the submandibular gland and provided UpToDate instructions on how to do so. Bunny Odonnell D.O.
[2017-08-23 15:18] VITALS: BP 159/92; PULSE 88; RESP 20; TEMP 98.4
== END 2017-08-23 16:16 | disposition home or self-care (01) | DRG 194 ==
LOC: C.ER 04:18 → C.9E 11:14 → C.3T 11:55 → C.9E 14:18 → C.5S 14:25
PROVIDERS: ADMIT Family Medicine; ATTEND Family Medicine
DX: J18.9 Pneumonia, unspecified organism (principal); I50.30 Unspecified diastolic (congestive) heart failure; I11.0 Hypertensive heart disease with heart failure; K11.20 Sialoadenitis, unspecified; I45.10 Unspecified right bundle-branch block; J20.9 Acute bronchitis, unspecified; I27.20 Pulmonary hypertension, unspecified; Z82.3 Family history of stroke

== ENCOUNTER 2017-09-20 13:28 | Emergency (ER) | payer MEDICAID ==
[2017-09-20 13:29] VITALS: BMI 27.5
--- NOTE | 2017-09-20 14:58 | RAD ---
HISTORY: cough/chest soreness COMPARISON: 08/21/2017 TECHNIQUE: Chest PA and lateral FINDINGS: LUNGS: No active pulmonary disease. PLEURA: No significant pleural effusion identified. No pneumothorax apparent. CARDIOVASCULAR: Normal. OSSEOUS STRUCTURES: No significant abnormalities. VISUALIZED UPPER ABDOMEN: Normal. OTHER FINDINGS: None. IMPRESSION: No active disease.
--- NOTE | 2017-09-20 15:24 | C.PDOC ---
History Of Present Illness 67 year old male with a history of pneumonia presents to the emergency department with complaints of a productive cough with yellow sputum for the past four days. Patient reports an associated headache as well as a sore throat. Patient was admitted a few months ago for left-sided pneumonia. Patient presents to the ED today because he is afraid of having pneumonia again. Chief Complaint (Nursing): Cough, Cold, Congestion History Per: Patient Onset/Duration Of Symptoms: Days (4) Current Symptoms Are (Timing): Still Present Location Of Pain: Throat, Headache Associated Symptoms: Sore Throat, Cough, Sputum (yellow) Past Medical History Reviewed: Historical Data, Nursing Documentation, Vital Signs Vital Signs: Last Vital Signs Temp 98.1 F 09/20/17 17:09 Pulse 75 09/20/17 17:09 Resp 18 09/20/17 17:09 BP 163/91 H 09/20/17 17:09 Pulse Ox 98 09/20/17 17:19 - Medical History PMH: No Chronic Diseases Surgical History: Appendectomy Family History: States: No Known Family Hx - Social History Hx Alcohol Use: No Hx Substance Use: No - Immunization History Hx Tetanus Toxoid Vaccination: No Hx Influenza Vaccination: Yes Hx Pneumococcal Vaccination: No Review Of Systems Except As Marked, All Systems Reviewed And Found Negative. ENT: Positive for: Throat Pain Respiratory: Positive for: Cough, Sputum (yellow) Neurological: Positive for: Headache Physical Exam - Physical Exam Appears: Non-toxic, No Acute Distress Skin: Normal Color, Warm Head: Atraumatic, Normacephalic Eye(s): bilateral: Normal Inspection Throat: No Erythema, No Exudate Chest: Symmetrical, No Tenderness Cardiovascular: Rhythm Regular Respiratory: No Rales, No Rhonchi, No Wheezing Gastrointestinal/Abdominal: Soft, No Tenderness, No Guarding, No Rebound Neurological/Psych: Oriented x3, Normal Speech, Normal Cognition ED Course And Treatment O2 Sat by Pulse Oximetry: 98 (RA) Pulse Ox Interpretation: Normal - Radiology CXR: Viewed By Me, Read By Radiologist - Other Rad CXR Two Views X-Ray: Viewed By Me, Read By Radiologist Interpretation: HISTORY: cough/chest soreness. COMPARISON: 08/21/2017. TECHNIQUE: Chest PA and lateral. FINDINGS: LUNGS: No active pulmonary disease. PLEURA: No significant pleural effusion identified. No pneumothorax apparent. CARDIOVASCULAR: Normal. OSSEOUS STRUCTURES: No significant abnormalities. VISUALIZED UPPER ABDOMEN: Normal. OTHER FINDINGS: None. IMPRESSION: No active disease. Progress Note: Plan: CXR. Avelox po. Catapres po. On re-eval BP is down, patient is stable to be d/c home with Clinic f/u. Disposition - Disposition Referrals: [facility] [Outside] Disposition: HOME/ ROUTINE Disposition Time: 17:15 Condition: STABLE Additional Instructions: Follow up in Clinic within 1-2 days without fail. Return to ED if feel worse. Prescriptions: Moxifloxacin [Avelox] 400 mg PO DAILY #10 tab amLODIPine [Norvasc] 10 mg PO DAILY #30 tab Benzonatate [Tessalon Perles] 2 tab PO TID #60 sgl Instructions: High Blood Pressure (DC), Acute Bronchitis Forms: [facility] (Hungarian) - Clinical Impression Clinical Impression: Bronchitis, Uncontrolled hypertension - PA / [employer] STORE MANAGER / Resident Statement MD/DO has reviewed & agrees with the documentation as recorded. - Scribe Statement The provider has reviewed the documentation as recorded by the Scribe (Luis Hall) All medical record entries made by the Scribe were at my direction and personally dictated by me. I have reviewed the chart and agree that the record accurately reflects my personal performance of the history, physical exam, medical decision making, and the department course for this patient. I have also personally directed, reviewed, and agree with the discharge instructions and disposition.
[2017-09-20 16:14] VITALS: RESP 18; TEMP 98.1
[2017-09-20 17:10] VITALS: BP 163/91; PULSE 75
[2017-09-20 17:18] VITALS: O2SAT 98
--- NOTE | 2017-09-21 22:22 | CARD ---
APPROVED REPORT EKG Measurement Heart [id number] CO [id number] <Conclusion> Normal sinus rhythm Left axis deviation Incomplete right bundle branch block Left anterior hemiblock Inferior infarct, age undetermined cannot be excluded Poor R wave progression Abnormal ECG
== END 2017-09-20 17:33 | disposition home or self-care (01) ==
LOC: C.ER 13:28
DX: J40 Bronchitis, not specified as acute or chronic (principal); I10 Essential (primary) hypertension